=== PATIENT | male | born 1960 | race Caucasian/White ===

== ENCOUNTER → 2020-12-23 | Outpatient (CLI) | payer OTHER ==
[2020-12-25 23:09] LABS: CHLAMYDIA TRACHOMATIS, NAA Negative (Negative)
== END | disposition home or self-care (01) ==
LOC: PLD 12:30 → LAB SHORT 12:30
PROVIDERS: Family Medicine
DX: N45.1 Epididymitis (principal)
CPT/HCPCS: 87086; 87491; 87591

== ENCOUNTER 2021-10-08 06:44 | Day surgery (SDC) | payer OTHER ==
[~2021-10-08] VITALS: Ht 180.3 cm; Wt 97.7 kg
[2021-10-08] MEDS ORDERED: OMEP20ER (06:58)
== END 2021-10-08 09:55 | disposition home or self-care (01) ==
LOC: ORSCSDS 06:44
PROVIDERS: Student in an Organized Health Care Education/Training Program
PROC: 0DBM8ZX Excision of Descending Colon, Via Natural or Artificial Opening Endoscopic, Diagnostic (ICD-10-PCS; principal; 2021-10-08 08:00)
PROC: 0DBL8ZX Excision of Transverse Colon, Via Natural or Artificial Opening Endoscopic, Diagnostic (ICD-10-PCS; principal; 2021-10-08 08:00)
PROC: 0DBN8ZX Excision of Sigmoid Colon, Via Natural or Artificial Opening Endoscopic, Diagnostic (ICD-10-PCS; principal; 2021-10-08 08:00)
DX: Z12.11 Encounter for screening for malignant neoplasm of colon (principal); Z80.0 Family history of malignant neoplasm of digestive organs; D12.4 Benign neoplasm of descending colon; D12.3 Benign neoplasm of transverse colon; D12.5 Benign neoplasm of sigmoid colon; K21.9 Gastro-esophageal reflux disease without esophagitis
CPT/HCPCS: 88305; J2704; J7120